=== PATIENT | male | born 1990 | race African-American/Black ===

== ENCOUNTER 2019-02-08 18:31 | Emergency (ER) | payer SELFPAY ==
[~2019-02-08] VITALS: Ht 177.8 cm; Wt 86.2 kg
--- NOTE | 2019-02-08 18:56 | Emergency Room Report ---
History of Present Illness General Chief Complaint: Nausea, Vomiting, and Diarrhea Source: Patient Present Illness HPI 28-year-old male history of appendectomy presents with acute nausea and vomiting after drinking and smoking week, this is been ongoing for 1 day, severity is moderate constant, aggravated by weed, alleviated by nothing, patient denies any fevers chills cough congestion he also endorses liquidy diarrhea. Patient presents for evaluation Allergies: Coded Allergies: No Known Allergies (Unverified , 02/08/19) Patient History Past Medical History: see triage record Social History: Reports: alcohol use, drug use - marijuana Reviewed Nursing Documentation: PMH: Agreed; PSxH: Agreed Nursing Documentation-PMH Past Medical History: No History, Except For Hx Gastrointestinal Problems: Yes - Appendectomy in 2018 Review of Systems All Other Systems: negative except mentioned in HPI Physical Exam Vital Signs Date Time Temp Pulse Resp B/P (MAP) Pulse Ox O2 Delivery O2 Flow Rate FiO2 02/08/19 18:34 98.8 84 18 154/85 (108) 99 Room Air Sp02 EP Interpretation: reviewed, normal General Appearance: well appearing, no apparent distress, alert Head: normocephalic, atraumatic Eyes: bilateral eye PERRL, bilateral eye EOMI ENT: uvula midline, moist mucus membranes Neck: supple, thyroid normal, supple/symm/no masses Respiratory: lungs clear, no respiratory distress, no retraction, no accessory muscle use Cardiovascular #1: normal peripheral pulses, regular rate, rhythm, no edema, no gallop, no murmur Gastrointestinal: non tender, soft, no guarding, no rebound Musculoskeletal: normal inspection Neurologic: alert, oriented x3 Psychiatric: mood/affect normal Skin: no rash, warm/dry Medical Decision Making Diagnostic Impression: Primary Impression: Nausea, vomiting, and diarrhea Additional Impression: Cannabinoid hyperemesis syndrome ER Course 28 year old male presents with acute nausea and vomiting after etoh use and marijuana. Patient given IV hydration. Benadryl and Haldol given Reevaluation 8:48pm patient has not vomited since medication administration Patient with elevated sodium, most likely 2/2 dehydration. Patient given lactated ringers and NS Patient counseled dispo home w/ return precautions. Laboratory Tests Test 02/08/19 18:48 02/08/19 19:55 White Blood Count 15.3 K/UL (4.8-10.8) H Red Blood Count 5.11 M/UL (4.70-6.10) Hemoglobin 16.5 G/DL (14.2-18.0) Hematocrit 45.7 % (42.0-52.0) Mean Corpuscular Volume 89 FL (80-99) Mean Corpuscular Hemoglobin 32.4 PG (27.0-31.0) H Mean Corpuscular Hemoglobin Concent 36.2 G/DL (32.0-36.0) H Red Cell Distribution Width 10.5 % (11.6-14.8) L Platelet Count 207 K/UL (150-450) Mean Platelet Volume 6.8 FL (6.5-10.1) Neutrophils (%) (Auto) 83.1 % (45.0-75.0) H Lymphocytes (%) (Auto) 10.3 % (20.0-45.0) L Monocytes (%) (Auto) 5.7 % (1.0-10.0) Eosinophils (%) (Auto) 0.0 % (0.0-3.0) Basophils (%) (Auto) 0.9 % (0.0-2.0) Sodium Level 151 MMOL/L (136-145) H Potassium Level 3.2 MMOL/L (3.5-5.1) L Chloride Level 112 MMOL/L (98-107) H Carbon Dioxide Level 23 MMOL/L (21-32) Anion Gap 16 mmol/L (5-15) H Blood Urea Nitrogen 12 mg/dL (7-18) Creatinine 1.1 MG/DL (0.55-1.30) Estimate Glomerular Filtration Rate > 60 mL/min (>60) Glucose Level 118 MG/DL (74-106) H Calcium Level 10.0 MG/DL (8.5-10.1) Total Bilirubin 2.5 MG/DL (0.2-1.0) H Direct Bilirubin 0.4 MG/DL (0.0-0.3) H Aspartate Amino Transferase (AST) 33 U/L (15-37) Alanine Aminotransferase (ALT) 35 U/L (12-78) Alkaline Phosphatase 53 U/L (46-116) Total Protein 8.0 G/DL (6.4-8.2) Albumin 4.6 G/DL (3.4-5.0) Globulin 3.4 g/dL Albumin/Globulin Ratio 1.4 (1.0-2.7) Lipase 62 U/L (73-393) L Urine Opiates Screen Negative (NEGATIVE) Urine Barbiturates Screen Negative (NEGATIVE) Phencyclidine (PCP) Screen Negative (NEGATIVE) Urine Amphetamines Screen Negative (NEGATIVE) Urine Benzodiazepines Screen Negative (NEGATIVE) Urine Cocaine Screen Negative (NEGATIVE) Urine Marijuana (THC) Screen Positive (NEGATIVE) H Last Vital Signs Date Time Temp Pulse Resp B/P (MAP) Pulse Ox O2 Delivery O2 Flow Rate FiO2 02/08/19 18:34 98.8 84 18 154/85 (108) 99 Room Air Disposition: HOME, SELF-CARE Condition: Stable Scripts Ondansetron (Zofran) 4 Mg Tablet 4 MG ORAL Q8H PRN for Nausea & Vomiting, #15 TAB 0 Refills Prov: Gui Kearney MD 02/08/19 Referrals: [facility] Patient Instructions: Cannabis Use Disorder, Dehydration, Adult, [id number] Additional Instructions: The patient was provided with discharge instructions, notified to follow-up with a primary care doctor and or specialist in the next 24-48 hours, and to return to the ED if they have worsening of their symptoms. Please note that this report is being documented using [employer] technology. This can lead to erroneous entry secondary to incorrect interpretation by the dictating instrument. Gui Kearney MD Feb 08, 2019 18:56
[2019-02-08 19:00] VITALS: BP 131/79
[2019-02-08] MEDS ORDERED: Haloperidol 5mg/ml Inj IM ONE (19:00)
[2019-02-08] MEDS ORDERED: DiphenhydrAMINE 50mg/ml Inj IVP ONE (19:00)
--- NOTE | 2019-02-08 19:00 | NUR ---
ED Nurse Note: Pt has been experiencing nausea/vomiting/diarrhea x 1 day. Has hx of Appendectomy last year.
[2019-02-08 19:07] LABS: BASOPHILS % (AUTO) 0.9 % (0.0-2.0); HEMATOCRIT 45.7 % (42.0-52.0); HEMOGLOBIN 16.5 G/DL (14.2-18.0); LYMPHOCYTES % (AUTO) 10.3 % (20.0-45.0); MEAN CORPUSCULAR VOLUME 89 FL (80-99); MONOCYTES % (AUTO) 5.7 % (1.0-10.0); NEUTROPHILS % (AUTO) 83.1 % (45.0-75.0); PLATELET COUNT 207 K/UL (150-450); RED BLOOD COUNT 5.11 M/UL (4.70-6.10); RED CELL DISTRIBUTION WIDTH 10.5 % (11.6-14.8); WHITE BLOOD COUNT 15.3 K/UL (4.8-10.8)
[2019-02-08 19:34] LABS: ANION GAP 16 mmol/L (5-15); BLOOD UREA NITROGEN 12 mg/dL (7-18); CARBON DIOXIDE 23 MMOL/L (21-32); CHLORIDE 112 MMOL/L (98-107); CREATININE 1.1 MG/DL (0.55-1.30); POTASSIUM 3.2 MMOL/L (3.5-5.1); SODIUM 151 MMOL/L (136-145)
[2019-02-08 19:44] LABS: ALANINE AMINOTRANSFERASE 35 U/L (12-78); ALBUMIN 4.6 G/DL (3.4-5.0); ALBUMIN/GLOBULIN RATIO 1.4 (1.0-2.7); ALKALINE PHOSPHATASE 53 U/L (46-116); ASPARTATE AMINO TRANSFERASE 33 U/L (15-37); BILIRUBIN,TOTAL 2.5 MG/DL (0.2-1.0)
[2019-02-08] MEDS ORDERED: LR 1000ml 1,000 ML IV ONE (19:45)
[2019-02-08 19:55] LABS: BILIRUBIN,DIRECT 0.4 MG/DL (0.0-0.3)
[2019-02-08] MEDS ORDERED: ZOFRAN4 MG ORAL (20:48)
[2019-02-08 21:15] VITALS: BP 131/79
[2019-02-08 21:16] VITALS: BP 131/79
--- NOTE | 2019-02-08 21:16 | NUR ---
ED Nurse Note: Pt cleared by ERMD for discharge. DC instructions/prescription was given and explained to pt and verbalized understanding of teachings. All medical deviecs such as ID band and IV line removed. Pt is AAO x4, ambulatory and left with all personal belongings.
== END 2019-02-08 21:15 | disposition home or self-care (01) ==
LOC: EMR 19:13
DX: F12.988 Cannabis use, unspecified with other cannabis-induced disorder (principal); R11.2 Nausea with vomiting, unspecified; R19.7 Diarrhea, unspecified; Z90.49 Acquired absence of other specified parts of digestive tract
CPT/HCPCS: 36415; 80053; 80307; 82248; 83690; 85025; 96361; 96365; 96372; 96375; 99284; J1200; J1630